=== PATIENT | male | born 1960 | race American Indian/Alaskan Native ===

== ENCOUNTER 2018-09-05 13:42 | Day surgery (SDC) | payer OTHER ==
[~2018-09-05 13:42] MED LIST: FLAGYL 500 MG/100 ML 500 MG/100 ML BAG IV NR
--- NOTE | 2018-09-05 14:54 | Anesthesia Consultation ---
Anesthesia Consult and Med Hx Date of service: 09/05/18 - Airway Anesthetic Teeth Evaluation: Good ROM Head & Neck: Adequate Mental/Hyoid Distance: Adequate Mallampati Class: Class III Intubation Access Assessment: Possibly Difficult - Pulmonary Exam CTA: Yes - Cardiac Exam Cardiac Exam: RRR - Pre-Operative Health Status ASA Pre-Surgery Classification: ASA2 Proposed Anesthetic Plan: General - Pulmonary Hx Smoking: No Hx Respiratory Symptoms: No Hx Sleep Apnea: Yes (noncompliant with CPAP) - Cardiovascular System Hx Hypertension: Yes (no antihypertensives today) Hx Heart Attack/AMI: No Hx Percutaneous Transluminal Coronary Angioplasty (PTCA): No Hx Cardia Arrhythmia: No (hx abnormal EKG with neg cardiac workup, per patient) Hx Pacemaker: No Hx Internal Defibrillator: No - Central Nervous System Hx Seizures: No CVA: No - Gastrointestinal Hx Gastroesophageal Reflux Disease: No - Endocrine Hx Renal Disease: No Hx Liver Disease: No Hx Insulin Dependent Diabetes: No Hx Non-Insulin Dependent Diabetes: No Hx Thyroid Disease: No - Other Systems Hx Cancer: Yes (hx prostate ca s/p radiation) Hx Obesity: Yes - Additional Comments Anesthesia Medical History Comments: No hx anesthetic complications.
--- NOTE | 2018-09-05 14:54 | Anesthesia Day of Surgery ---
Anesthesia Day of Surgery - Day of Surgery Patient Examined: Yes Patient H&P Reviewed: Yes Patient is NPO: Yes
[2018-09-05] MEDS ORDERED: SUBLIMAZE IV PRN (14:55)
[2018-09-05] MEDS ORDERED: VERSED IV NR (15:00)
[2018-09-05] MEDS ORDERED: LACTATED RINGERS 1,000 ML IV SCH (15:00)
[2018-09-05] MEDS ORDERED: GENTAMICIN 80 MG in NACL 0.9% 100 ML IV SCH (16:30)
[2018-09-05] MEDS ORDERED: GENTAMICIN/NS 80 MG/100 ML 100 ML IV ONE (16:37)
--- NOTE | 2018-09-05 17:22 | Post Anesthesia Evaluation ---
- Post Anesthesia Evaluation Patient Participated: Yes Airway Patent: Yes Stable Respiratory Function: Yes Nausea/Vomiting: No Temp > 96.8F: Yes Pain Manageable: Yes Adequeate Hydration: Yes Anesthesia Complications: No
[2018-09-05] MEDS ORDERED: DIPRIVAN 10 MG/ML IV ONE (17:52)
[2018-09-05] MEDS ORDERED: XYLOCAINE MPF 2% ONE (17:53)
[2018-09-05] MEDS ORDERED: ZOFRAN ONE (17:53)
[2018-09-05] MEDS ORDERED: SUBLIMAZE ONE (17:53)
[2018-09-05] MEDS ORDERED: DECADRON ONE (17:53)
--- NOTE | 2018-09-05 18:38 | Short Stay Summary ---
Short Stay Documentation Date of service: 09/05/18 - History H&P: obtained from office - Allergies and Medications Current Medications: Allergies Penicillins Allergy (Verified 08/30/18 11:27) Unknown WAS TOLD A CHILD THAT HE WAS ALLERGIC Home Medications Medication Instructions Recorded Confirmed Last Taken Type AtorvaSTATin [Lipitor] 20 mg PO QHS 08/30/18 09/05/18 09/04/18 20:00 History Ibuprofen [Motrin] 600 mg PO Q8H PRN 08/30/18 08/30/18 Unknown History Lisinopril/Hydrochlorothiazide 1 each PO QAM 08/30/18 09/05/18 09/04/18 09:00 History [Zestoretic 10-12.5 mg Tablet] Metoprolol [Lopressor] 200 mg PO QHS 08/30/18 09/05/18 09/04/18 20:00 History Montelukast [Singulair] 10 mg PO PRN PRN 08/30/18 08/30/18 Unknown History Active Medications Fentanyl (Sublimaze) 50 mcg IV Q5MIN PRN PRN Reason: Pain , Severe (7-10) Lactated Ringer's (Lactated Ringers) 1,000 mls @ 100 mls/hr IV DIRECT ZULLY Last Admin: 09/05/18 16:30 Dose: 100 mls/hr Documented by: Gentamicin Sulfate 80 mg/ (Sodium Chloride) 102 mls @ 200 mls/hr IV ONCE ZULLY; Protocol Midazolam HCl (Versed) 2 mg IV PREOP NR Stop: 09/05/18 23:59 Last Admin: 09/05/18 16:30 Dose: 2 mg Documented by: - Brief post op/procedure progress note Date of procedure: 09/05/18 Pre-op diagnosis: rt renal [id number] Post-op diagnosis: same Procedure: eswl Anesthesia: GETA Estimated blood loss: none Condition: stable - Hospital course Hospital course: hailey marin strainer, post op info on chart - Disposition Condition at discharge: Stable Disposition: [id number] TO HOME OR SELFCARE Short Stay Discharge Plan Follow up with: NNEKA STONER [Other] - 7 Days
[2018-09-05] MEDS ORDERED: NORCO 5/325 PO PRN (19:38)
[2018-09-05 20:56] VITALS: BP 145/75
--- NOTE | 2018-09-05 21:25 | Operative Report ---
PREOPERATIVE DIAGNOSIS: Right renal stone, 10 mm and 6 mm. POSTOPERATIVE DIAGNOSIS: Right renal stone, 10 mm and 6 mm. PROCEDURE: Extracorporal shock wave lithotripsy, staged procedure. SURGEON: Lonnie Walden MD ANESTHESIA: General. ESTIMATED BLOOD LOSS: Minimal. FLUIDS: Crystalloid. COMPLICATIONS: No complications. INDICATIONS: This 58-year-old gentleman presents to the office with hematuria. CT of abdomen and pelvis revealed a 6 and 7 mm right renal stone. He has a history of prostate cancer, status post radiation therapy by Dr. Ender Cabrera and Dr. Ilda Cochran. He presents now for surgical intervention. Risks, benefits and complications were explained. DESCRIPTION OF PROCEDURE: The patient was taken to the operative suite, placed in a supine position. After adequate general anesthesia, both stones could be appreciated. The focus was on a 9 mm stone. Extracorporal shock wave lithotripsy was administered with a maximum kV of 7 and 2500 shocks. Five minute renal pause after 200 shocks. After 1000 shocks, the patient started to develop some ectopy. At that point, we elected to gate. The patient tolerated the procedure well and was extubated and taken to recovery room. He will go home on Flomax, [place] and follow up in the office. JOB# [id number] AURA/DRAKE
== END 2018-09-05 20:30 | disposition home or self-care (01) ==
LOC: OR 13:42
PROVIDERS: ATTEND Urology
DX: N20.0 Calculus of kidney (principal); E78.00 Pure hypercholesterolemia, unspecified; I10 Essential (primary) hypertension; G47.30 Sleep apnea, unspecified; E66.9 Obesity, unspecified; Z68.35 Body mass index [BMI] 35.0-35.9, adult; Z88.0 Allergy status to penicillin; Z79.899 Other long term (current) drug therapy; Z98.890 Other specified postprocedural states; Z85.46 Personal history of malignant neoplasm of prostate
CPT/HCPCS: 36415; 50590; 84132; J1100; J1580; J2250; J2405; J2704; J3010; J7120